=== PATIENT | female | born 2005 | race Asian ===

== ENCOUNTER 2024-06-06 08:41 | Outpatient (REF) | payer OTHER, SELFPAY ==
--- NOTE | ~2024-06-06 | US_ITS ---
EXAMINATION: US RETROPERITONEAL COMPLETE (RENAL) CLINICAL INFORMATION: Chronic UTIs. Dysuria. COMPARISON: None available. TECHNIQUE: Real-time imaging of the kidneys and bladder. FINDINGS: RIGHT KIDNEY: 9.7 x 4.6 x 5.6 cm (SAG x AP x TRV). The kidney is normal in size, contour, and echogenicity. Renal cortical thickness is normal. No calculi or focal parenchymal lesions. No hydronephrosis. LEFT KIDNEY: 9.8 x 4.4 x 4.2 cm (SAG x AP x TRV). The kidney is normal in size, contour, and echogenicity. Renal cortical thickness is normal. No calculi or focal parenchymal lesions. No hydronephrosis. BLADDER: Well distended and normal. Bilateral ureteral jets are demonstrated. Prevoid bladder volume is 203 mL. Postvoid bladder volume is 0 mL. US/US retroperitoneal comp IMPRESSION: 1. No hydronephrosis or nephrolithiasis. 2. Sonographically unremarkable urinary bladder without postvoid residual. Electronically signed by: John Thayer MD 06/06/2024 05:03 PM EDT
== END 2024-06-06 08:42 | disposition home or self-care (01) ==
LOC: HO.UMASIMG 08:41
PROVIDERS: Visit Provider Family Medicine
DX: R30.0 Dysuria (principal)
CPT/HCPCS: 76770